=== PATIENT | female | born 1970 | race Two or more races ===

== ENCOUNTER 2020-03-08 17:49 | Emergency (ER) | payer OTHER ==
[~2020-03-08] VITALS: Ht 167.6 cm; Wt 90.7 kg
[~2020-03-08 17:49] MED LIST: OSEL75CA PO; TUSSI PRES-B L120 M1 PO; VASOTEC10 MG
[2020-03-08] MEDS ORDERED: MELOXICAM15 MG (18:00)
== END 2020-03-08 21:16 | disposition home or self-care (01) ==
LOC: ER 17:49
DX: L03.116 Cellulitis of left lower limb (principal); M25.572 Pain in left ankle and joints of left foot

== ENCOUNTER 2021-11-26 16:40 | Emergency (ER) | payer OTHER ==
[~2021-11-26] VITALS: Ht 167.6 cm; Wt 90.7 kg
[~2021-11-26 16:40] MED LIST changes: +MELOXICAM15 MG
== END 2021-11-26 20:09 | disposition home or self-care (01) ==
LOC: ER 16:40
DX: R10.2 Pelvic and perineal pain (principal)

== ENCOUNTER 2023-07-06 15:12 | Emergency (ER) | payer OTHER ==
[~2023-07-06] VITALS: Ht 167.6 cm; Wt 90.7 kg
[2023-07-06] MEDS ORDERED: AMOX-CLAV 875-1 EACH PO (16:43)
[2023-07-06] MEDS ORDERED: DICLOFENAC SODI75 MG PO (16:43)
== END 2023-07-06 18:05 | disposition home or self-care (01) ==
LOC: ER 15:12
DX: L03.115 Cellulitis of right lower limb (principal); Z88.8 Allergy status to other drugs, medicaments and biological substances

== ENCOUNTER 2024-06-25 18:04 | Emergency (ER) | payer OTHER ==
[~2024-06-25] VITALS: Ht 167.6 cm; Wt 90.7 kg
[~2024-06-25 18:04] MED LIST changes: +AMOX-CLAV 875-1 EACH PO; +DICLOFENAC SODI75 MG PO
[2024-06-25] MEDS ORDERED: AMITRIPTYLINE H25 MG (18:23)
[2024-06-25] MEDS ORDERED: DEXAMETHASONE SODIUM PHOSPHATE 4 MG/ML VIAL IM STA (19:28)
== END 2024-06-25 19:52 | disposition home or self-care (01) ==
LOC: ER 18:05
DX: M77.32 Calcaneal spur, left foot (principal); M79.672 Pain in left foot